=== PATIENT | female | born 1955 | race Caucasian/White ===

== ENCOUNTER → 2017-02-17 | Outpatient (CLI) | payer BC, OTHER ==
[~2017-02-17] VITALS: Ht 165.1 cm; Wt 125.0 kg
[~2017-02-17] MED LIST: COZAAR100 MG PO; GLUCOPHAGE500 MG/TAB PO; JANUVIA 100MG100 MG PO; MOBIC15 MG PO; NORCO 325 MG-7.1 TAB PO; PRILOTC PO
[2017-02-17 07:22] VITALS: BP 162/96; PULSE 82
[2017-02-17 08:53] VITALS: BP 156/95; PULSE 70
== END ==
LOC: COL.RAD 07:00
DX: M51.16 Intervertebral disc disorders with radiculopathy, lumbar region (principal)
CPT/HCPCS: J3301

== ENCOUNTER → 2017-04-08 | Outpatient (CLI) | payer BC, OTHER ==
[~2017-04-08] VITALS: Ht 165.1 cm; Wt 126.3 kg
[2017-04-08 09:38] VITALS: BP 139/77; PULSE 95
[2017-04-08 10:25] VITALS: BP 127/84; PULSE 90
== END ==
LOC: COL.RAD 09:17
DX: M54.40 Lumbago with sciatica, unspecified side (principal)
CPT/HCPCS: J3301

== ENCOUNTER → 2018-05-19 | Outpatient (CLI) | payer OTHER | LOC: MC.RAD 11:04 | DX: Z12.31 Encounter for screening mammogram for malignant neoplasm of breast (principal) ==

== ENCOUNTER → 2019-05-22 | Outpatient (CLI) | payer OTHER | LOC: COL.RAD 12:28 | DX: M47.26 Other spondylosis with radiculopathy, lumbar region (principal); M48.061 Spinal stenosis, lumbar region without neurogenic claudication; M53.86 Other specified dorsopathies, lumbar region; M43.16 Spondylolisthesis, lumbar region; M51.16 Intervertebral disc disorders with radiculopathy, lumbar region ==

== ENCOUNTER → 2020-03-04 | Outpatient (CLI) | payer OTHER | LOC: COL.RAD 11:50 | DX: M53.86 Other specified dorsopathies, lumbar region (principal); M51.16 Intervertebral disc disorders with radiculopathy, lumbar region; M47.816 Spondylosis without myelopathy or radiculopathy, lumbar region; M48.061 Spinal stenosis, lumbar region without neurogenic claudication | CPT/HCPCS: A9585 ==

== ENCOUNTER → 2020-03-22 | Outpatient (CLI) | payer OTHER | LOC: COL.RAD 12:05 | DX: M47.26 Other spondylosis with radiculopathy, lumbar region (principal) | CPT/HCPCS: J3301 ==

== ENCOUNTER → 2020-07-18 | Outpatient (CLI) | payer OTHER ==
[~2020-07-18] MED LIST changes: +BYDUREON B2 MG/0.85 IJ; +JARDIANCE10 PO
== END ==
LOC: COL.RAD 06:27
DX: M47.816 Spondylosis without myelopathy or radiculopathy, lumbar region (principal)
CPT/HCPCS: J3301

== ENCOUNTER → 2020-09-24 | Outpatient (CLI) | payer OTHER ==
[~2020-09-24] VITALS: Ht 165.1 cm; Wt 116.6 kg
[2020-09-24 08:27] VITALS: BP 156/93; PULSE 87
[2020-09-24 09:33] VITALS: BP 141/93; PULSE 82
== END ==
LOC: COL.RAD 08:05
DX: M53.86 Other specified dorsopathies, lumbar region (principal); M51.26 Other intervertebral disc displacement, lumbar region
CPT/HCPCS: J3301

== ENCOUNTER → 2022-05-08 | Outpatient (CLI) | payer MEDICARE, OTHER | LOC: COL.RAD 09:45 | DX: M17.0 Bilateral primary osteoarthritis of knee (principal) | CPT/HCPCS: J3301; Q9967 ==